=== PATIENT | female | born 2000 | race Caucasian/White ===

== ENCOUNTER 2021-08-25 09:23 | Emergency (ER) | payer BC ==
[2021-08-25 09:57] VITALS: RESP 18
[2021-08-25 10:31] LABS: Appearance,Urine Cloudy (Clear); Bacteria,Urine Rare /hpf; Bilirubin,Urine Negative (Negative); Blood,Urine Trace (Negative); Color,Urine Yellow; Glucose,Urine (UA) Negative (Negative); Ketones,Urine Negative (Negative); Leukocyte Esterase,Urine Moderate (Negative); Mucus,Urine Many /hpf; Nitrite,Urine Negative (Negative); PH, Urine 5.5 (5.0-8.0); Protein,Urine 1+ (Negative); RBC,Urine 5 /hpf (0-5); Specific Gravity,Urine 1.034 (1.001-1.035); Squamous Epithelial Cell,Urine 8 /hpf (0-4); Urobilinogen,Urine <2.0 mg/dL (<2.0); WBC,Urine 8 /hpf (0-5)
[2021-08-25] MEDS ORDERED: SODIUM CHLORIDE 0.9% 1,000 ML IV STA (11:46)
[2021-08-25] MEDS ORDERED: diphenhydrAMINE 50 MG/ML 1 ML VIAL IVP STA (11:46)
[2021-08-25] MEDS ORDERED: METOCLOPRAMIDE 5 MG/ML 2 ML VIAL IVP STA (11:46)
[2021-08-25] MEDS ORDERED: KETOROLAC 15 MG/ML 1 ML VIAL IVP STA (11:47)
[2021-08-25] MEDS ORDERED: ACETAMINOPHEN TAB 500 MG TAB PO STA (11:49)
--- NOTE | 2021-08-25 12:03 | ED ---
General Adult HPI - General Chief complaint: Nausea/Vomiting/Diarrhea Stated complaint: N/V/D, bodyaches Time Seen by Provider: 08/25/21 11:15 Source: patient Mode of arrival: ambulatory Limitations: no limitations - History of Present Illness Initial comments: This 20-year-old male presents emergency Department with nausea, vomiting, diarrhea 2 days. Patient states on Tuesday morning she woke up having diarrhea and began vomiting a couple of hours later. Patient states she vomited on and off over the last 2 days. Patient states since yesterday she has also been experiencing a dull nagging headache along with body aches. Patient states her diarrhea has significantly improved, however she has had one episode today. Patient states she also has a little bit of right lower back pain that she noticed after retching/vomiting yesterday. Patient states it is painful to touch/twist and bend. Patient states she has been able to keep a little bit of fluid down, however whenever she tries to have food she vomits it back up. Patient states she does have some abdominal pain that is more in her left lower quadrant. Patient states she did try taking Zofran which did not have any relief. Patient states she has been experiencing episodes of chills and sweats over the last couple of days. Patient denies any chest pain, shortness of breath, dizziness, cough, change in bladder/urination, change in vision, dizziness, hemoptysis, hematochezia. - Related Data Home Medications Medication Instructions Recorded Confirmed FLUoxetine HCL [Sarafem] 10 mg PO DAILY 08/25/21 08/25/21 Ondansetron Odt [Zofran Odt] 4 mg PO DAILY PRN 08/25/21 08/25/21 Allergies Allergy/AdvReac Type Severity Reaction Status Date / Time Latex, Natural Rubber AdvReac Rash/Hives Verified 08/25/21 12:01 Review of Systems ROS Statement: Those systems with pertinent positive or pertinent negative responses have been documented in the HPI. ROS Other: All systems not noted in ROS Statement are negative. Past Medical History Past Medical History: No Reported History History of Any Multi-Drug Resistant Organisms: None Reported Past Surgical History: Adenoidectomy, Tonsillectomy Past Psychological History: No Psychological Hx Reported Smoking Status: Never smoker Past Alcohol Use History: Occasional Past Drug Use History: None Reported General Exam Limitations: no limitations General appearance: alert, in no apparent distress Head exam: Present: atraumatic, normocephalic Eye exam: Present: normal appearance, PERRL, EOMI ENT exam: Present: mucous membranes moist Neck exam: Present: full ROM. Absent: tenderness, meningismus, lymphadenopathy Respiratory exam: Present: normal lung sounds bilaterally. Absent: respiratory distress, wheezes, rales, rhonchi, stridor Cardiovascular Exam: Present: regular rate, normal rhythm, normal heart sounds. Absent: systolic murmur, diastolic murmur, rubs, gallop, clicks GI/Abdominal exam: Present: soft, tenderness (Diffuse abdominal tenderness to palpation, worse in the left lower quadrant. I did inform patient that I wanted to do a computed tomography scan of her abdomen, however patient does not want contrast and did refuse scan.), normal bowel sounds. Absent: distended, guarding, rebound, rigid Extremities exam: Present: normal inspection, full ROM, normal capillary refill. Absent: tenderness, pedal edema, joint swelling, calf tenderness Back exam: Present: normal inspection, full ROM, paraspinal tenderness (Mild right paraspinal tenderness to lumbar spine to palpation). Absent: CVA tenderness (R), CVA tenderness (L), vertebral tenderness Neurological exam: Present: alert, oriented X3, CN II-XII intact Psychiatric exam: Present: normal affect, normal mood Skin exam: Present: warm, dry, intact, normal color. Absent: rash Course Vital Signs 08/25/21 08/25/21 09:54 12:28 Temperature 100.9 F H 99.6 F Pulse Rate 118 H 104 H Respiratory 18 18 Rate Blood Pressure 130/80 103/63 O2 Sat by Pulse 100 98 Oximetry - Reevaluation(s) Reevaluation #1: 08/25/21 13:01 And reevaluation, patient states she is ready to go home. Patient states she is not feeling is nauseous as before. Patient was able to keep down by mouth water. Patient states her headache has resolved and is only now at 2/10. I didn't perform patient wanted to wait for her white blood cell count to come back before discharging her. I did state that I wanted to do a CT scan of her abdomen due to her left lower quadrant tenderness, however patient did refuse and stated she would return if anything worsens or comes back. Patient states she does not have very much pain in her abdomen at this time and states it is just diffuse. 08/25/21 13:38 Waiting for labs to result, patient sitting up in bed requesting to be discharged. Patient has been able to keep down fluids without vomiting, however she did refuse crackers and stated she wants to go home and sleep. Endocrine crackers patient, however she stated she would not use them. Patient services taking computed tomography scan. Patient currently denies any headache or nausea and states her stomach just feels "upset." I informed patient will discharge her after receiving her labs. 08/25/21 13:50 Labs with no acute abnormalities, patient instructed to return to the emergency department if any of her symptoms return or worsen. Medical Decision Making - Medical Decision Making This 20-year-old female presents emergency Department with nausea, vomiting, diarrhea and body aches x2 days. Labs unremarkable, urine with bacteria and epithelial cells. HCG not detected. Coronavirus not detected. After getting Reglan, Benadryl, fluids, Toradol, Tylenol, patient states she feels much better and is requesting to go home. Patient is no longer nauseous and no longer has a headache. Patient states her abdominal pain is still there and generalized, however it is improved greatly. Patient states she does have Zofran at home and does not need anymore. Due to left lower quadrant tenderness, I did offer comp uted tomography scan of abdomen and pelvis, however patient did refuse and stated she would come back to the emergency department if any of her symptoms return or worsen. Strict return precautions were discussed with patient. Patient to follow-up with primary care provider next 24-48 hours. Patient verbally agreed to plan. Patient sent home in stable condition. Case discussed with my attending, Dr. Flores. - Lab Data Result diagrams: 08/25/21 13:31 08/25/21 11:57 Lab Results 08/25/21 08/25/21 08/25/21 Range/Units 10:01 10:12 10:12 WBC (3.8-10.6) k/uL RBC (3.80-5.40) m/uL Hgb (11.4-16.0) gm/dL Hct (34.0-46.0) % MCV (80.0-100.0) fL MCH (25.0-35.0) pg MCHC (31.0-37.0) g/dL RDW (11.5-15.5) % Plt Count (150-450) k/uL MPV Neutrophils % % Lymphocytes % % Monocytes % % Eosinophils % % Basophils % % Neutrophils # (1.3-7.7) k/uL Lymphocytes # (1.0-4.8) k/uL Monocytes # (0-1.0) k/uL Eosinophils # (0-0.7) k/uL Basophils # (0-0.2) k/uL Sodium (137-145) mmol/L Potassium (3.5-5.1) mmol/L Chloride (98-107) mmol/L Carbon Dioxide (22-30) mmol/L Anion Gap mmol/L BUN (7-17) mg/dL Creatinine (0.52-1.04) mg/dL Est GFR (CKD-EPI)AfAm (>60 ml/min/1.73 sqM) Est GFR (CKD-EPI)NonAf (>60 ml/min/1.73 sqM) Glucose (74-99) mg/dL Plasma Lactic Acid Shyam (0.7-2.0) mmol/L Calcium (8.4-10.2) mg/dL Total Bilirubin (0.2-1.3) mg/dL AST (14-36) U/L ALT (4-34) U/L Alkaline Phosphatase (38-126) U/L Total Protein (6.3-8.2) g/dL Albumin (3.5-5.0) g/dL Lipase (23-300) U/L Urine Color Yellow Urine Appearance Cloudy H (Clear) Urine pH 5.5 (5.0-8.0) Ur Specific Herrick 1.034 (1.001-1.035) Urine Protein 1+ H (Negative) Urine Glucose (UA) Negative (Negative) Urine Ketones Negative (Negative) Urine Blood Trace H (Negative) Urine Nitrite Negative (Negative) Urine Bilirubin Negative (Negative) Urine Urobilinogen <2.0 (<2.0) mg/dL Ur Leukocyte Esterase Moderate H (Negative) Urine RBC 5 (0-5) /hpf Urine WBC 8 H (0-5) /hpf Ur Squamous Epith Cells 8 H (0-4) /hpf Urine Bacteria Rare H (None) /hpf Urine Mucus Many H (None) /hpf Urine HCG, Qual Not Detected (Not Detectd) Coronavirus (PCR) Not Detected (Not Detectd) 08/25/21 08/25/21 08/25/21 Range/Units 11:57 11:57 13:31 WBC 9.2 (3.8-10.6) k/uL RBC 4.48 (3.80-5.40) m/uL Hgb 13.8 (11.4-16.0) gm/dL Hct 41.3 (34.0-46.0) % MCV 92.2 (80.0-100.0) fL MCH 30.7 (25.0-35.0) pg MCHC 33.4 (31.0-37.0) g/dL RDW 12.4 (11.5-15.5) % Plt Count 229 (150-450) k/uL MPV 8.7 Neutrophils % 83 % Lymphocytes % 10 % Monocytes % 5 % Eosinophils % 1 % Basophils % 0 % Neutrophils # 7.6 (1.3-7.7) k/uL Lymphocytes # 0.9 L (1.0-4.8) k/uL Monocytes # 0.4 (0-1.0) k/uL Eosinophils # 0.1 (0-0.7) k/uL Basophils # 0.0 (0-0.2) k/uL Sodium 135 L (137-145) mmol/L Potassium 3.7 (3.5-5.1) mmol/L Chloride 103 (98-107) mmol/L Carbon Dioxide 23 (22-30) mmol/L Anion Gap 9 mmol/L BUN 12 (7-17) mg/dL Creatinine 0.81 (0.52-1.04) mg/dL Est GFR (CKD-EPI)AfAm >90 (>60 ml/min/1.73 sqM) Est GFR (CKD-EPI)NonAf >90 (>60 ml/min/1.73 sqM) Glucose 91 (74-99) mg/dL Plasma Lactic Acid Shyam 0.9 (0.7-2.0) mmol/L Calcium 8.9 (8.4-10.2) mg/dL Total Bilirubin 0.8 (0.2-1.3) mg/dL AST 26 (14-36) U/L ALT 16 (4-34) U/L Alkaline Phosphatase 61 (38-126) U/L Total Protein 7.3 (6.3-8.2) g/dL Albumin 4.4 (3.5-5.0) g/dL Lipase 31 (23-300) U/L Urine Color Urine Appearance (Clear) Urine pH (5.0-8.0) Ur Specific Herrick (1.001-1.035) Urine Protein (Negative) Urine Glucose (UA) (Negative) Urine Ketones (Negative) Urine Blood (Negative) Urine Nitrite (Negative) Urine Bilirubin (Negative) Urine Urobilinogen (<2.0) mg/dL Ur Leukocyte Esterase (Negative) Urine RBC (0-5) /hpf Urine WBC (0-5) /hpf Ur Squamous Epith Cells (0-4) /hpf Urine Bacteria (None) /hpf Urine Mucus (None) /hpf Urine HCG, Qual (Not Detectd) Coronavirus (PCR) (Not Detectd) Disposition Clinical Impression: Nausea and vomiting, Diarrhea Disposition: HOME SELF-CARE Condition: Stable Instructions (If sedation given, give patient instructions): Acute Nausea and Vomiting (ED), Acute Diarrhea (ED) Additional Instructions: Please follow-up with her primary care provider next 24-48 hours. Please return to the emergency department with new, worsening, or concerning symptoms. Take Zofran as directed. Take Tylenol or Motrin for fever and symptomatically as directed. Is patient prescribed a controlled substance at d/c from ED?: No Referrals: Nonstaff,Physician [Primary Care Provider] - 1-2 days Time of Disposition: 13:50
[2021-08-25 12:43] LABS: ALT 16 U/L (4-34); AST 26 U/L (14-36); African American GFR (CKD) >90 (>60 ml/min/1.73 sqM); Albumin 4.4 g/dL (3.5-5.0); Alkaline Phosphatase 61 U/L (38-126); Anion Gap 9 mmol/L; Blood Urea Nitrogen 12 mg/dL (7-17); Calcium 8.9 mg/dL (8.4-10.2); Carbon Dioxide 23 mmol/L (22-30); Chloride 103 mmol/L (98-107); Glucose 91 mg/dL (74-99); Lipase 31 U/L (23-300); Non-African American GFR(CKD) >90 (>60 ml/min/1.73 sqM); Potassium 3.7 mmol/L (3.5-5.1); Sodium 135 mmol/L (137-145); Total Bilirubin 0.8 mg/dL (0.2-1.3); Total Protein 7.3 g/dL (6.3-8.2)
[2021-08-25 13:43] LABS: Basophils % (A) 0 %; Eosinophils # (A) 0.1 k/uL (0-0.7); Eosinophils % (A) 1 %; HCT 41.3 % (34.0-46.0); HGB 13.8 gm/dL (11.4-16.0); Lymphocytes # (A) 0.9 k/uL (1.0-4.8); Lymphocytes % (A) 10 %; MCH 30.7 pg (25.0-35.0); MCHC 33.4 g/dL (31.0-37.0); MCV 92.2 fL (80.0-100.0); Mean Platelet Volume 8.7; Monocytes # (A) 0.4 k/uL (0-1.0); Monocytes % (A) 5 %; Neutrophils # (A) 7.6 k/uL (1.3-7.7); Neutrophils % (A) 83 %; Platelet Count 229 k/uL (150-450); RBC 4.48 m/uL (3.80-5.40); RDW 12.4 % (11.5-15.5); WBC 9.2 k/uL (3.8-10.6)
[2021-08-25 14:27] VITALS: BP 107/55; PULSE 78; TEMP 98.3
== END 2021-08-25 14:27 | disposition home or self-care (01) ==
LOC: EC 09:23
DX: R11.2 Nausea with vomiting, unspecified (principal); R19.7 Diarrhea, unspecified; Z20.822 Contact with and (suspected) exposure to COVID-19; Z91.040 Latex allergy status
CPT/HCPCS: 36415; 80053; 83605; 83690; 85025; 81001; 81025; 87635; 99284; 96374; 96375; 96361; J1200; J2765; J1885

== ENCOUNTER 2022-07-11 17:05 | Emergency (ER) | payer BC ==
[2022-07-11 17:16] VITALS: RESP 20
--- NOTE | 2022-07-11 17:30 | ED ---
Lower Extremity Injury HPI - General Chief Complaint: Extremity Injury, Lower Stated Complaint: fall, ankle pain Time Seen by Provider: 07/11/22 17:17 Source: patient Mode of arrival: ambulatory Limitations: no limitations - History of Present Illness Initial Comments: This patient is 21-year-old woman who presents to have evaluation of left ankle. She states that she was going down some stairs, lost her footing and fell down. She states that her foot and ankle were underneath and she slid down a few stairs. The patient indicates pain at the lateral aspect of the ankle and also along the lateral aspect of the forefoot. She states she was able to put a little bit of weight on the fluid but it does increase the pain. She states she has had previous fracture in the left ankle that did require casting but no surgery. Other than that, patient states she has some abrasions to her knee and her buttocks. She believes that her tetanus shot is up-to-date. She denies any other injuries. She declines to have analgesic MD Complaint: ankle injury, foot injury Onset/Timin -: hour(s) Injury: Ankle: Left, Foot: Left Type of Injury: inversion Place: home Severity: moderate Improves With: nothing Worsens With: weight bearing Context: fall Associated Symptoms: swelling, able to partially bear weight - Related Data Home Medications Medication Instructions Recorded Confirmed FLUoxetine HCL [Sarafem] 10 mg PO DAILY 08/25/21 08/25/21 Ondansetron Odt [Zofran Odt] 4 mg PO DAILY PRN 08/25/21 08/25/21 Allergies Allergy/AdvReac Type Severity Reaction Status Date / Time Latex, Natural Rubber AdvReac Rash/Hives Verified 07/11/22 17:16 Review of Systems ROS Statement: Those systems with pertinent positive or pertinent negative responses have been documented in the HPI. ROS Other: All systems not noted in ROS Statement are negative. Respiratory: Denies: cough, dyspnea Cardiovascular: Denies: chest pain, palpitations Gastrointestinal: Denies: abdominal pain, vomiting, diarrhea Musculoskeletal: Reports: as per HPI, joint swelling, arthralgia. Denies: back pain Skin: Denies: rash Neurological: Denies: headache, weakness, numbness Past Medical History Past Medical History: No Reported History History of Any Multi-Drug Resistant Organisms: None Reported Past Surgical History: Adenoidectomy, Tonsillectomy Past Psychological History: No Psychological Hx Reported Smoking Status: Never smoker Past Alcohol Use History: Occasional Past Drug Use History: None Reported General Exam Limitations: no limitations General appearance: alert, in no apparent distress Head exam: Present: atraumatic, normocephalic Eye exam: Present: normal appearance GI/Abdominal exam: Present: soft. Absent: tenderness Extremities exam: Present: full ROM, tenderness, normal capillary refill. Absent: pedal edema, calf tenderness Left Upper Leg exam: Present: full ROM. Absent: tenderness, swelling Knee exam: Present: full ROM. Absent: tenderness, swelling, abrasion Lower Leg exam: Present: full ROM. Absent: tenderness, swelling, abrasion Ankle exam: Present: tenderness, swelling. Absent: abrasion, laceration Foot/Toe exam: Present: tenderness, swelling. Absent: abrasion, laceration, ecchymosis, deformity, crepitus, dislocation, erythema, amputation, calcaneal tenderness, tenderness at base of 5th metatarsal, nail avulsion, subungual hematoma Neurovascular tendon exam: Present: no vascular compromise. Absent: pulse deficit, abnormal cap refill, motor deficit, sensory deficit, tendon deficit Back exam: Absent: CVA tenderness (R), CVA tenderness (L), vertebral tenderness Neurological exam: Present: alert. Absent: motor sensory deficit Skin exam: Present: warm, dry, intact, normal color. Absent: rash Course Vital Signs 07/11/22 07/11/22 17:13 18:51 Temperature 98.1 F 98.2 F Pulse Rate 110 H 102 H Respiratory 20 20 Rate Blood Pressure 142/85 136/81 O2 Sat by Pulse 97 96 Oximetry Medical Decision Making - Medical Decision Making Patient is 21-year-old woman with low mechanism fall and pain to ankle/foot. She is sent for x-rays of the ankle which interpreted by myself are negative for fracture or dislocation of the ankle. She is sent for x-rays of foot which are interpreted by myself as showing nondisplaced fourth metatarsal fracture. Results are discussed with patient. She is fitted with postoperative shoe. Discussed appropriate further care and follow-up with orthopedics and return parameters for here should she require. Patient to be nonweightbearing discussed crutches use. Discussed appropriate medications with including the Tylenol is safe to take. Was pt. sent in by a medical professional or institution? @ -[No Did you speak to anyone other than the patient for history? @ -[No Did you review nursing and triage notes? @ -[agree Were old charts reviewed? @ -[None Differential Diagnosis? @ -[Differential diagnosis for extremity injury includes acute fracture, dislocation, sprain, contusion, acute vascular injury, neurologic injury amongst other entities EKG interpreted by me (3pts min.)? @ -[none] X-rays interpreted by me (1pt min.)? @ -[See chart CT interpreted by me (1pt min.)? @ -[none] U/S interpreted by me (1pt. min.)? @ -[none] What testing was considered but not performed? (CT, X-rays, U/S, labs)? Why? @ [None What meds were considered but not given? Why? @ -[none] Did you discuss the management of the patient with other professionals? @ -No] Did you reconcile home meds? @ -[none] Was smoking cessation discussed for >3mins.? @ -[none] Was critical care preformed (if so, how long)? @ -[none] Were there social determinants of health that impacted care today? How? (Homelessness, low income, unemployed, alcoholism, drug addiction, transportation, low edu. Level, literacy, decrease access to med. care, long term, rehab)? @ -No Was there de-escalation of care discussed even if they declined? (Discuss DNR or withdrawal of care, Hospice)? @ -No What co-morbidities impacted this encounter? (DM, HTN, Smoking, COPD, CAD, Cancer, CVA, Hep., AIDS, mental health diagnosis, sleep apnea, morbid obesity)? @ -[Patient is affecting medication choice Was patient admitted / discharged? @ -[Discharged Undiagnosed new problem with uncertain prognosis? @ -[none] Drug Therapy requiring intensive monitoring for toxicity (Heparin, Nitro, Insulin, Cardizem)? @ -[none] Were any procedures done? @ -[none] Diagnosis/symptom? @ -[Acute closed fourth metatarsal fracture, uncomplicated, Initial visit Acute, or Chronic, or Acute on Chronic?, @ -[default] Uncomplicated (without systemic symptoms) or Complicated (systemic symptoms)? @ -[default] Side effects of treatment? @ -[none] Exacerbation, Progression, or Severe Exacerbation] @ -[no] Poses a threat to life or bodily function? @ -[no] Disposition Clinical Impression: Metatarsal stress fracture of left foot Disposition: HOME SELF-CARE Condition: Good Instructions (If sedation given, give patient instructions): Foot Fracture in Adults (ED) Is patient prescribed a controlled substance at d/c from ED?: No Referrals: Elliott Gunter MD [Primary Care Provider] - 1-2 days Sonu Thomas DO [Doctor of Osteopathic Medicine] - 1-2 days
--- NOTE | 2022-07-11 17:59 | XR ---
EXAMINATION TYPE: XR foot complete LT DATE OF EXAM: 07/11/2022 COMPARISON: NONE HISTORY: Pain TECHNIQUE: 3 views FINDINGS: There is nondisplaced fracture of the head of the fourth metatarsal. There is slight impact ion. The toes are intact. IMPRESSION: Acute nondisplaced distal fourth metatarsal fracture.
--- NOTE | 2022-07-11 18:00 | XR ---
EXAMINATION TYPE: XR ankle complete LT DATE OF EXAM: 07/11/2022 COMPARISON: NONE HISTORY: Pain TECHNIQUE: 3 views FINDINGS: Ankle mortise is anatomic. I see no fracture nor dislocation. Joint spaces are normal. Hind foot is intact IMPRESSION: Negative left ankle exam.
[2022-07-11 18:52] VITALS: BP 136/81; PULSE 102; TEMP 98.2
== END 2022-07-11 19:04 | disposition home or self-care (01) ==
LOC: EC 17:05
DX: M84.375A Stress fracture, left foot, initial encounter for fracture (principal); Z91.040 Latex allergy status; W10.9XXA Fall (on) (from) unspecified stairs and steps, initial encounter
CPT/HCPCS: 99283

== ENCOUNTER 2022-10-15 10:17 | Outpatient (CLI) | payer BC ==
--- NOTE | 2022-10-15 13:16 | US ---
EXAMINATION TYPE: US OB BPP wo non-stress DATE OF EXAM: 10/15/2022 COMPARISON: NONE CLINICAL INDICATION: Female, 22 years old with history of decreased movement; can't feel baby m ove today TECHNIQUE: Transabdominal (TA). Scoring by the rn camp during real-time assessment. FINDINGS: BPP PARAMETERS: PRESENTATION: Vertex LIE: Longitudinal?? HEART RATE: 134 bpm RHYTHM: Normal ROSALES: 15.0 DIAPHRAGM IMAGED: yes BPP SCORIN. Breathin (1 episode of breathing of 30 second duration in 30 minutes of scanning time) 2. Movement: 2 (at least 3 discrete body movements in 30 minutes) 3. Tone: 2 (1 episode of active flexion/extension of limb) 4. ROSALES: 2 (ROSALES index > 5cm) IMPRESSION: TOTAL SCORE: 8 / 8
[2022-10-15 13:39] VITALS: BP 116/67; PULSE 95; RESP 17; TEMP 98.2
--- NOTE | 2022-11-09 14:02 | P.MSEPDOC ---
Presenting Problems - Arrival Data Date of Arrival on Unit: 10/15/22 Time of Arrival on Unit: 10:17 Mode of Transport: Ambulatory - Complaint OB-Reason for Admission/Chief Complaint: Rule Out PROM, Decreased Movement Comment: pt states she has had decreased movement, vaginal pain and possbile 2 gushes of clear fluid in last two weeks Medical History - Information : 1 Para: 0 Term: 0 : 0 Abortions: Spontaneous or Elective: 0 Number of Living Children: 0 - Gestational Age Gestational Age by LIZZ (wks/days): 33 Weeks and 2 Days Review of Systems - Review of Systems Constitutional: No problems Breast: No problems ENT: No problems Cardiovascular: No problems Respiratory: No problems Gastrointestinal: No problems Genitourinary: No problems Musculoskeletal: No problems Neurological: No problems Skin: No problems Vital Signs - Temperature Temperature: 98.2 F Temperature Source: Oral - Pulse Right Brachial Pulse Rate: 95 Pulse Assessment Method: Automatic Cuff - Respirations Respiratory Rate: 17 Oxygen Delivery Method: Room Air O2 Sat by Pulse Oximetry: 97 - Blood Pressure Right Arm Blood Pressure: 116/67 Blood Pressure Mean: 83 Blood Pressure Source: Automatic Cuff Medical Screen Scoring - Cervical Exam Dilation (cm): 0 Membranes: Intact - Assessment - Baby A Baseline FHR: 135 Heart Rate - NICHD Category: Category I (Normal) NST: Reactive Physician Notification - Physician Notified Physician Notified Date: 10/15/22 Physician Notified Time: 12:21 Physician: Bindu Kenny New Order Received: Yes (dc home after bpp) Maternal Triage Index - Urgent/Priority 2 Urgent Priority 2: Yes Provider Notified: Bindu Kenny Provider Notified Time: 12:21 Criteria Met for Priority 2: BPP ordered with result of 02/01 Disposition - Disposition OB Disposition: Discharge to home, Written follow up instructions reviewed Discharge Date: 10/15/22 Discharge Time: 13:00 I agree with the RN Medical Screening Exam: Yes Physician's MSE Comment: I have neither seen nor examined the patient Case reviewed; plan agreed upon as documented in EMR&OBIX.: Yes Diagnosis: RELATED CONDITIONS, UNSPECIFIED, THIRD TRIMESTER
== END 2022-10-15 13:00 | disposition home or self-care (01) ==
LOC: FBPOP 10:17
PROVIDERS: ATTEND Obstetrics & Gynecology
DX: O36.8131 Decreased fetal movements, third trimester, fetus 1 (principal); Z3A.33 33 weeks gestation of pregnancy; Z91.040 Latex allergy status
CPT/HCPCS: 59025; 76819; 84112; 99213

== ENCOUNTER 2022-11-16 16:31 | Outpatient (CLI) | payer BC ==
[2022-11-16 17:18] VITALS: BP 136/71; PULSE 100; RESP 16; TEMP 98.7
--- NOTE | 2022-12-16 19:11 | P.MSEPDOC ---
Presenting Problems - Arrival Data Date of Arrival on Unit: 11/16/22 Time of Arrival on Unit: 17:17 Mode of Transport: Ambulatory - Complaint OB-Reason for Admission/Chief Complaint: Possible Onset of Labor Medical History - Information : 1 Para: 0 Term: 0 : 0 Abortions: Spontaneous or Elective: 0 Number of Living Children: 0 - Gestational Age Gestational Age by LIZZ (wks/days): 37 Weeks and 6 Days Review of Systems - Review of Systems Constitutional: No problems Breast: No problems ENT: No problems Cardiovascular: No problems Respiratory: No problems Gastrointestinal: No problems Genitourinary: No problems Musculoskeletal: No problems Neurological: No problems Skin: No problems Vital Signs - Temperature Temperature: 98.7 F Temperature Source: Oral - Pulse Standing Pulse Rate: 100 Pulse Assessment Method: Palpation - Respirations Respiratory Rate: 16 Oxygen Delivery Method: Room Air - Blood Pressure Sitting Blood Pressure: 136/71 Blood Pressure Mean: 92 Blood Pressure Source: Automatic Cuff Medical Screen Scoring - Cervical Exam Dilation (cm): 2 Effacement (%): 70 Station: -1 Membranes: Intact - Uterine Contractions Frequency From (mins): 2 Frequency To (mins): 10 Intensity: Mild - Assessment - Baby A Heart Rate - NICHD Category: Category I (Normal) Physician Notification - Physician Notified Physician Notified Date: 11/16/22 Physician Notified Time: 17:14 Physician: dr medrano New Order Received: Yes - Notification Comment Comment: pt to be discharged home after one hour if no cervical change Maternal Triage Index - Non-Urgent/Priority 4 Non-Urgent Priority 4: Yes Criteria Met for Priority 4: dr medrano here in department at 1715 report given orders to discharge home if no cervical change in one hour Disposition - Disposition OB Disposition: Observe Discharge Date: 11/16/22 Discharge Time: 18:49 I agree with the RN Medical Screening Exam: Yes Case reviewed; plan agreed upon as documented in EMR&OBIX.: Yes Diagnosis: FALSE LABOR AT OR AFTER 37 COMPLETED WEEKS OF GESTATION
== END 2022-11-16 18:20 | disposition home or self-care (01) ==
LOC: FBPOP 16:31
PROVIDERS: ATTEND Obstetrics & Gynecology Obstetrics
DX: O47.03 False labor before 37 completed weeks of gestation, third trimester (principal); Z3A.37 37 weeks gestation of pregnancy; Z91.040 Latex allergy status
CPT/HCPCS: 59025; 99213

== ENCOUNTER 2022-11-16 21:34 | Inpatient (IN) | payer BC ==
[2022-11-16] MEDS: LACTATED RINGERS 1,000 ML IV SCH (23:38)
[2022-11-16 23:51] LABS: Appearance,Urine Clear (Clear); Bilirubin,Urine Negative (Negative); Blood,Urine Small (Negative); Color,Urine Yellow; Glucose,Urine (UA) Negative (Negative); Ketones,Urine 2+ (Negative); Leukocyte Esterase,Urine Negative (Negative); Mucus,Urine Rare /hpf; Nitrite,Urine Negative (Negative); PH, Urine 6.5 (5.0-8.0); Protein,Urine Trace (Negative); RBC,Urine 2 /hpf (0-5); Specific Gravity,Urine 1.015 (1.001-1.035); Squamous Epithelial Cell,Urine <1 /hpf (0-4); Urobilinogen,Urine <2.0 mg/dL (<2.0); WBC,Urine 1 /hpf (0-5)
[2022-11-17] MEDS: LACTATED RINGERS 1,000 ML IV SCH ×6 (00:26→10:28)
[2022-11-17] MEDS ORDERED: BUTORPHANOL 2 MG/ML 1 ML VIAL IV PRN (02:02)
[2022-11-17] MEDS ORDERED: MORPHINE SULFATE 10 MG/ML 1ML VIAL IM ONE (02:45)
[2022-11-17 02:50] LABS: Basophils % (A) 0 %; Eosinophils # (A) 0.2 k/uL (0-0.7); Eosinophils % (A) 1 %; HCT 39.7 % (34.0-46.0); HGB 13.2 gm/dL (11.4-16.0); Lymphocytes % (A) 15 %; MCH 30.3 pg (25.0-35.0); MCHC 33.3 g/dL (31.0-37.0); Mean Platelet Volume 11.8; Monocytes # (A) 0.6 k/uL (0-1.0); Monocytes % (A) 4 %; Neutrophils # (A) 10.6 k/uL (1.3-7.7); Neutrophils % (A) 78 %; Platelet Count 203 k/uL (150-450); RBC 4.36 m/uL (3.80-5.40); WBC 13.5 k/uL (3.8-10.6)
[2022-11-17] MEDS ORDERED: fentaNYL (PF) 50 MCG/ML 5 ML AMP ONE (09:06)
[2022-11-17] MEDS ORDERED: ROPIVACAINE 5 MG/ML 20 ML AMPULE ONE (09:06)
[2022-11-17] MEDS ORDERED: SODIUM CHLORIDE 0.9% 100 ML BAG ONE (09:06)
[2022-11-17] MEDS ORDERED: CARBOPROST TROMETHAMINE 250 MCG/ML 1 ML AMP IM PRN (10:13)
[2022-11-17] MEDS ORDERED: METHYLERGONOVINE 0.2 MG/ML 1 ML AMP IM PRN (10:13)
[2022-11-17] MEDS ORDERED: miSOPROStoL 200 MCG TAB PO PRN (10:13)
[2022-11-17] MEDS ORDERED: LIDOCAINE 0.5% (PF) 5 MG/ML (50 ML SDV) SQ PRN (10:13)
[2022-11-17] MEDS ORDERED: OXYTOCIN 10 UNIT/ML 1 ML VIAL IM PRN (10:13)
[2022-11-17] MEDS ORDERED: TRANEXAMIC ACID IN NACL,ISO-OS 1,000 MG in EMPTY BAG 1 BAG IV PRN (10:13)
[2022-11-17] MEDS ORDERED: TERBUTALINE 1 MG/ML VIAL SQ PRN (10:13)
[2022-11-17] MEDS ORDERED: OXYTOCIN 30 UNITS/500 ML NS 30 UNIT in SALINE 1 500ML.BAG IV SCH ×2 (10:15→17:15)
[2022-11-17] MEDS ORDERED: ACETAMINOPHEN TAB 325 MG TAB PO PRN (17:10)
[2022-11-17] MEDS ORDERED: HYDROCORTISONE 2.5% RECTAL CREAM 30 GM TUBE RECTAL PRN (17:10)
[2022-11-17] MEDS ORDERED: ZOLPIDEM 5 MG TAB PO PRN (17:10)
[2022-11-17] MEDS ORDERED: diphenhydrAMINE 25 MG CAP PO PRN (17:10)
[2022-11-17] MEDS ORDERED: SIMETHICONE 80 MG CHEWABLE PO PRN (17:10)
[2022-11-17] MEDS ORDERED: BENZOCAINE/MENTHOL SPRAY 1 GM/SPRAY AEROSOL TOPICAL PRN (17:10)
[2022-11-17] MEDS ORDERED: diphenhydrAMINE 50 MG/ML 1 ML VIAL IVP PRN ×2 (17:10)
[2022-11-17] MEDS ORDERED: LANOLIN CREAM 5 GM TUBE TOPICAL PRN (17:10)
[2022-11-17] MEDS ORDERED: diphenhydrAMINE 50 MG CAP PO PRN (17:10)
--- NOTE | 2022-11-17 17:14 | P.PROBDLV ---
Vaginal Delivery Note - . Vaginal Delivery Note: This is a 22-year-old 1 para 0 at 38-0/7 weeks that presents to labor and delivery with complaints of regular contractions. Patient was observed overnight as she was noted to be [place] and very uncomfortable with no cervical change. This warning on examination patient was noted to be 4 cm very uncomfortable and requesting pain medication. Patient underwent amniotomy clear fluid was obtained. Patient quickly requested epidural which was placed without difficulty. Patient had increasing pain after epidural was placed therefore nitrous was begun in addition. Patient progressed through labor eventually was noted to be completely dilated. Patient was placed in the modified lithotomy position and with excellent maternal effort brought the infant down to presentation with additional pushes the anterior/posterior shoulder and body was delivered. A loose nuchal cord was delivered through. The umbilical cord was doubly clamped and cut and the infant was handed off to awaiting RN. Spontaneous cry was appreciated. Placenta was delivered spontaneously intact with three-vessel cord being noted. On inspection the patient's vaginal vault a first-degree vaginal laceration was appreciated. This laceration was injected with lidocaine and repaired in usual fashion with 3-0 Rapide. The bladder was drained with a latex free catheter for partially 200 mL of clear yellow urine. Estimated blood loss 200 mL Patient tolerated delivery well, was noted to have some grunting after delivery therefore was taken to special care nursery for observation. All counts were noted correct 2 at the end of the delivery.
--- NOTE | 2022-11-17 17:15 | P.HPOB ---
History of Present Illness H&P Date: 11/17/22 Chief Complaint: IUP at 38 and 0/7 weeks, contractions [age]-year-old at 38-0/7 weeks that presents to labor and delivery with complaints of regular painful contractions. Patient was seen multiple times in triage throughout the day with complaints of contractions. Patient made minimal cervical change. This morning she is significantly more uncomfortable and tearful with contractions. On exam she did make noted change from 2 cm to 4 cm. Patient does desire epidural. Patient has been receiving routine care with myself which has been essentially uncomplicated. On bloodwork this patient is a blood type of A+, rubella status immune, B surface engine negative, HIV negative, RPR is nonreactive, group beta strep cultures negative. Review of Systems Constitutional: Reports fatigue, Denies chills, Denies fever Ears, nose, mouth and throat: Denies headache Cardiovascular: Reports leg edema Respiratory: Denies dyspnea Gastrointestinal: Denies nausea, Denies vomiting Genitourinary: Reports Past Medical History Past Medical History: No Reported History History of Any Multi-Drug Resistant Organisms: None Reported Past Surgical History: Adenoidectomy, Tonsillectomy Past Anesthesia/Blood Transfusion Reactions: No Reported Reaction Past Psychological History: No Psychological Hx Reported Smoking Status: Never smoker Past Alcohol Use History: Occasional Past Drug Use History: None Reported - Past Family History Mother Family Medical History: No Reported History Medications and Allergies Home Medications Medication Instructions Recorded Confirmed Type Aspirin 81 mg PO DAILY 10/15/22 11/16/22 History FLUoxetine HCL [PROzac] 1 tab PO DAILY 10/15/22 11/16/22 History Vit No.179/Iron/Folic 1 tablet PO DAILY 10/15/22 11/16/22 History [ Tablet] Allergies Allergy/AdvReac Type Severity Reaction Status Date / Time Latex, Natural Rubber AdvReac Rash/Hives Verified 10/15/22 10:57 Exam Osteopathic Statement: *. No significant issues noted on an osteopathic structural exam other than those noted in the History and Physical/Consult. Vital Signs Temp Pulse Resp BP Pulse Ox 11/17/22 01:53 98.2 F 101 H 16 136/80 11/16/22 21:46 98.1 F 101 H 16 119/68 98 Intake and Output 11/16/22 11/17/22 11/17/22 22:59 06:59 14:59 Other: # Voids 1 Weight 113.398 kg 113.398 kg Targeted physical exam is performed on this date in general this is a well-nourished well-developed female in no acute distress, breathing is noted to be nonlabored, heart has a regular rate and rhythm, abdomen is gravid, heart tones returned be category 1 and she is [place] every 2-3 minutes, on cervical exam she is 4/90/-2 station amniotomy is performed and cl ear fluid is obtained. Results Result Diagrams: 11/16/22 23:30 Abnormal Lab Results - Last 24 Hours (Table) 11/16/22 11/16/22 Range/Units 23:20 23:30 WBC 13.5 H (3.8-10.6) k/uL Neutrophils # 10.6 H (1.3-7.7) k/uL Urine Protein Trace H (Negative) Urine Ketones 2+ H (Negative) Urine Blood Small H (Negative) Urine Mucus Rare H (None) /hpf Assessment and Plan (1) Term Current Visit: Yes Status: Acute Code(s): Z34.90 - ENCNTR FOR SUPRVSN OF NORMAL , UNSP, UNSP TRIMESTER SNOMED Code(s): 86779635 (2) Active labor Current Visit: Yes Status: Acute Code(s): NQU9996 - SNOMED Code(s): 715311101 Plan: 22-year-old at 38-0/7 weeks presents with complaints of contractions. Patient is deemed to be in active labor with noted cervical change. Amniotomy was performed and clear fluid was obtained. Patient does desire epidural. Anesthesia is notified and will place epidural. We will monitor closely and anticipate spontaneous vaginal delivery.
[2022-11-17] MEDS: IBUPROFEN 600 MG TAB PO SCH ×2 (17:45→20:06)
[2022-11-17] MEDS: SENNOSIDES-DOCUSATE SODIUM 1 EACH TAB PO SCH (20:06)
[2022-11-18] MEDS: IBUPROFEN 600 MG TAB PO SCH ×3 (06:59→21:28)
[2022-11-18] MEDS: SENNOSIDES-DOCUSATE SODIUM 1 EACH TAB PO SCH ×2 (07:40→21:25)
[2022-11-18] MEDS ORDERED: PRENATAL VIT-IRON-FOLIC ACID 1 EACH TABLET PO SCH (09:00)
[2022-11-18] MEDS ORDERED: FLUoxetine HCL 10 MG CAP PO SCH (09:00)
--- NOTE | 2022-11-18 09:26 | P.PNOBGVD ---
Subjective - Subjective Principal diagnosis: PPD 1 Interval history: Patient is doing well . she denies concerns she is ambulating and voiding without difficulty, lochia is moderate. without difficulty. she is tolerating a regular diet without nausea or vomiting. Patient reports: Reports appetite normal, Reports voiding normally, Reports pain well controlled, Reports ambulating normally [place]: doing well, nursing well Objective - Latest Vital Signs Latest vital signs: Vital Signs Temp Pulse Resp BP Pulse Ox 11/18/22 08:00 97.7 F 94 16 124/78 11/18/22 04:00 98.7 F 100 18 118/74 11/18/22 00:00 97.6 F 95 16 132/74 98 11/17/22 18:58 98.3 F 106 H 16 128/69 11/17/22 18:28 98.6 F 109 H 16 144/66 11/17/22 17:58 98.6 F 93 16 123/57 11/17/22 17:43 97 16 122/58 11/17/22 17:28 98.7 F 96 16 135/71 11/17/22 17:13 104 H 16 124/61 11/17/22 16:58 98.9 F 112 H 18 140/64 Intake and Output 11/17/22 11/18/22 11/18/22 22:59 06:59 14:59 Intake Total 179.833 Output Total 265 Balance -85.167 Intake: Intake, IV Titration 179.833 Amount Oxytocin 30 Units/500 ml 179.833 Ns 30 unit In Saline 1 500ml.bag @ Per Protocol IV .Q0M [facility] Rx#:[id number] Output: Output, Quantitative 265 Blood Loss Other: # Voids 1 2 1 - Exam Extremities: Present: normal Abdomen: Present: normal appearance, soft Uterus: Present: normal, firm Assessment and Plan (1) Term Current Visit: Yes Status: Acute Code(s): Z34.90 - ENCNTR FOR SUPRVSN OF NORMAL , UNSP, UNSP TRIMESTER SNOMED Code(s): 49880937 (2) Active labor Current Visit: Yes Status: Acute Code(s): AYX7500 - SNOMED Code(s): 351042114 (3) Status post vaginal delivery Current Visit: Yes Status: Acute Code(s): RGZ3696 - SNOMED Code(s): 434017713 (4) Obstetric vaginal laceration with first degree perineal laceration Current Visit: Yes Status: Acute Code(s): O70.0 - FIRST DEGREE PERINEAL LACERATION DURING DELIVERY SNOMED Code(s): 252170569 Plan: Patient is doing well . Plan to continue with routine care likely discharge tomorrow, plan circumcision per patients request tomorrow am.
[2022-11-19] MEDS: IBUPROFEN 600 MG TAB PO SCH ×2 (05:16→06:56)
[2022-11-19 08:21] VITALS: BP 126/73; PULSE 73; RESP 16; TEMP 98.1
--- NOTE | 2022-11-19 10:16 | P.DS ---
Providers Date of admission: 11/17/22 01:26 Expected date of discharge: 11/19/22 Attending physician: Destini Nunez Primary care physician: Stated None - Discharge Diagnosis(es) (1) Term Current Visit: Yes Status: Acute (2) Active labor Current Visit: Yes Status: Acute (3) Status post vaginal delivery Current Visit: Yes Status: Acute (4) Obstetric vaginal laceration with first degree perineal laceration Current Visit: Yes Status: Acute Hospital Course: this is a 22-year-old 1 para 0 that was admitted on 11/17 with complaints of regular painful contractions. Patient had been receiving routine care with myself which is been essentially uncomplicated. Patient was admitted contractions were noted to be every 2-4 minutes. Patient underwent amniotomy and clear fluid was obtained. Patient did receive an epidural for pain control throughout labor. Patient did receive Pitocin augmentation of labor after the epidural, contractions were spacing post placement. Patient made progress toward complete. Once patient was noted to be completely dilated she began pushing and had a normal spontaneous vaginal delivery of a viable male at 1646, weight of 7 lbs. 14 oz., Apgars of 67 and 8. Patient's course has been essentially uneventful. Patient has been refusing her Prozac as it makes her "sleepy". Patient states she will resume once she gets home. Patient is breast-feeding without difficulty. She states her lochia is moderate. Her pain is controlled. She is quite tearful and I have encouraged her to continue with her Prozac. Patient Condition at Discharge: Good Plan - Discharge Summary New Discharge Prescriptions: No Action Aspirin 81 mg PO DAILY Vit No.179/Iron/Folic [ Tablet] 1 tablet PO DAILY FLUoxetine HCL [PROzac] 1 tab PO DAILY Discharge Medication List Aspirin 81 mg PO DAILY 10/15/22 [History] FLUoxetine HCL [PROzac] 1 tab PO DAILY 10/15/22 [History] Vit No.179/Iron/Folic [ Tablet] 1 tablet PO DAILY 10/15/22 [History] Follow up Appointment(s)/Referral(s): Destini Nunez DO [Doctor of Osteopathic Medicine] - 4 Weeks Patient Instructions/Handouts: Vaginal Delivery (GEN), Vaginal Delivery (DC) Activity/Diet/Wound Care/Special Instructions: no tub baths or intercourse until 6 weeks . Patient is to call the office and make a routine visit 4 weeks. Patient is counseled on depression and encouraged to continue with her Prozac. Should she have any increasing symptoms she is urged to call the office and be seen sooner. Discharge Disposition: HOME SELF-CARE
== END 2022-11-19 11:30 | disposition home or self-care (01) | DRG 807 ==
LOC: FBPOP 21:34 → 4FBP 11-17 01:26
PROVIDERS: ADMIT Obstetrics & Gynecology; ATTEND Obstetrics & Gynecology Obstetrics
PROC: 10E0XZZ Delivery of Products of Conception, External Approach (ICD-10-PCS; principal; 2022-11-17)
PROC: 0HQ9XZZ Repair Perineum Skin, External Approach (ICD-10-PCS; 2022-11-17)
PROC: 10907ZC Drainage of Amniotic Fluid, Therapeutic from Products of Conception, Via Natural or Artificial Opening (ICD-10-PCS; 2022-11-17)
DX: O69.81X0 Labor and delivery complicated by cord around neck, without compression, not applicable or unspecified (principal); Z37.0 Single live birth; O70.0 First degree perineal laceration during delivery; Z3A.38 38 weeks gestation of pregnancy; Z79.82 Long term (current) use of aspirin; Z79.899 Other long term (current) drug therapy
CPT/HCPCS: 59025; 81001; 84112; 85025; 86850; 86900; 86901; 96361; 99213

== ENCOUNTER 2024-04-15 19:37 | Emergency (ER) | payer BC ==
[2024-04-15 20:10] VITALS: RESP 18; TEMP 98.4
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
[2024-04-15] MEDS: ORPHENADRINE 30 MG/ML 2 ML VIAL IM STA (21:35)
[2024-04-15] MEDS: KETOROLAC 15 MG/ML 1 ML VIAL IM STA (22:15)
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
[2024-04-15 22:47] VITALS: BP 106/69; PULSE 75
== END 2024-04-15 22:45 | disposition home or self-care (01) ==
LOC: EC 19:37
CPT/HCPCS: 70450; 72125; 96372; 99284

== ENCOUNTER 2024-05-07 06:04 | Emergency (ER) | payer BC ==
--- NOTE | 2024-05-07 06:20 | ED ---
Female Urogenital HPI - General Chief complaint: Vaginal Bleeding Stated complaint: Abd pain/vaginal bleeding-6 weeks preg Time Seen by Provider: 05/07/24 06:20 Source: patient, RN notes reviewed Mode of arrival: ambulatory Limitations: no limitations - History of Present Illness Initial comments: This is a 23-year-old female, [id number], with presenting to the emergency department for chief complaint of pelvic/lower abdominal cramping and vaginal bleeding over the past 2 days. Patient states that during the weekend she has been experiencing passage of blood clots. Patient is approximately 6 weeks . Patient has not had ultrasound testing yet for this states that is scheduled for next week. She is also been having a few episodes of diarrhea over the past 2 days as well. She denies shortness of breath, heart palpitations, dizziness or lightheadedness. Denies urinary symptoms. Patient states that she is attempted take Tylenol over the weekend with minimal relief. Last Menstrual Period: 03/30/24 - Related Data Home Medications Medication Instructions Recorded Confirmed Aspirin 81 mg PO DAILY 10/15/22 11/16/22 FLUoxetine HCL [PROzac] 1 tab PO DAILY 10/15/22 11/16/22 Vit No.179/Iron/Folic 1 tablet PO DAILY 10/15/22 11/16/22 [ Tablet] Previous Rx's Medication Instructions Recorded Cyclobenzaprine [Flexeril] 10 mg PO TID PRN #15 tab 04/15/24 Nitrofurantoin Monohyd/M-Cryst 100 mg PO Q12HR #14 cap 05/07/24 [Macrobid] Allergies Allergy/AdvReac Type Severity Reaction Status Date / Time Latex, Natural Rubber AdvReac Rash/Hives Verified 05/07/24 06:14 Review of Systems ROS Statement: Those systems with pertinent positive or pertinent negative responses have been documented in the HPI. ROS Other: All systems not noted in ROS Statement are negative. Past Medical History Past Medical History: No Reported History History of Any Multi-Drug Resistant Organisms: None Reported Past Surgical History: Adenoidectomy, Tonsillectomy Past Anesthesia/Blood Transfusion Reactions: No Reported Reaction Past Psychological History: No Psychological Hx Reported Smoking Status: Never smoker Past Alcohol Use History: None Reported Past Drug Use History: None Reported - Past Family History Mother Family Medical History: No Reported History General Exam Limitations: no limitations General appearance: alert, in no apparent distress ENT exam: Present: normal exam, mucous membranes moist Neck exam: Present: normal inspection. Absent: tenderness, meningismus, lymphadenopathy Respiratory exam: Present: normal lung sounds bilaterally. Absent: respiratory distress, wheezes, rales, rhonchi, stridor Cardiovascular Exam: Present: regular rate, normal rhythm, normal heart sounds. Absent: systolic murmur, diastolic murmur, rubs, gallop, clicks GI/Abdominal exam: Present: soft, tenderness (LLQ/pelvic), normal bowel sounds. Absent: distended, guarding, rebound, rigid Extremities exam: Present: normal inspection, full ROM, normal capillary refill. Absent: tenderness, pedal edema, joint swelling, calf tenderness Back exam: Present: normal inspection Skin exam: Present: warm, dry, intact, normal color. Absent: rash Course Vital Signs 05/07/24 05/07/24 06:14 08:35 Temperature 98.3 F 98.0 F Pulse Rate 100 86 Respiratory 16 18 Rate Blood Pressure 124/63 122/68 O2 Sat by Pulse 96 99 Oximetry Medical Decision Making - Medical Decision Making Was pt. sent in by a medical professional or institution (, PA, STEAM PLANT OPERATOR, urgent care, hospital, or penitentiary...) When possible be specific @ -No Did you speak to anyone other than the patient for history (EMS, parent, family, police, friend...)? What history was obtained from this source @ -No Did you review nursing and triage notes (agree or disagree)? Why? @ -I reviewed and agree with nursing and triage notes Were old charts reviewed (outside hosp., previous admission, EMS record, old EKG, old radiological studies, urgent care reports/EKG's, penitentiary records)? Report findings @ -No old charts were reviewed Differential Diagnosis (chest pain, altered mental status, abdominal pain women, abdominal pain men, vaginal bleeding, weakness, fever, dyspnea, syncope, headache, dizziness, GI bleed, back pain, seizure, CVA, palpatations, mental health, musculoskeletal)? @ -Differential Vaginal Bleeding: Spontaneous , threatened , molar , ectopic , bloody show, incompetent cervix, abruptioplacenta, placenta previa, uterine rupture, dysfunctional uterine bleeding, hemorrhage, uterine fibroids, this is not meant to be an all-inclusive list. EKG interpreted by me (3pts min.). @ -None X-rays interpreted by me (1pt min.). @ -None done CT interpreted by me (1pt min.). @ -None done U/S interpreted by me (1pt. min.). @ - ultrasound reveals a gestation with 2 separate gestational sacs and yolk sacs estimated at 5 weeks 5 days and 6 weeks 0 days with no poles identified and no cardiac motion evident What testing was considered but not performed or refused? (CT, X-rays, U/S, labs)? Why? @ -None What meds were considered but not given or refused? Why? @ -None Did you discuss the management of the patient with other professionals (professionals i.e. , PA, STEAM PLANT OPERATOR, lab, RT, psych nurse, vp digital marketing social media and crm, cad design engineer, teacher, loss prevention officer, case management associate)? Give summary @ -No Was smoking cessation discussed for >3mins.? @ -No Was critical care preformed (if so, how long)? @ -No Were there social determinants of health that impacted care today? How? (Homelessness, low income, unemployed, alcoholism, drug addiction, transportation, low edu. Level, literacy, decrease access to med. care, [place] [facility], rehab)? @ -No Was there de-escalation of care discussed even if they declined (Discuss DNR or withdrawal of care, Hospice)? DNR status @ -No What co-morbidities impacted this encounter? (DM, HTN, Smoking, COPD, CAD, Cancer, CVA, ARF, Chemo, Hep., AIDS, mental health diagnosis, sleep apnea, morbid obesity)? @ -None Was patient admitted / discharged? Hospital course, mention meds given and route, prescriptions, significant lab abnormalities, going to OR and other pertinent info. @ -discharged. 23-year-old female, 6 weeks gestation with vaginal bleeding. On my evaluation of the patient she is resting comfortably no signs acute distress.'s are stable. Physical examination remarkable for tenderness to palpation of left lower quadrant/pelvis. Abdomen is soft with no signs of rebound tenderness or rigidity. Patient is offered Tylenol however is declined. She will be evaluated via laboratory testing and ultrasound evaluation. She is in agreement with this plan. Labs remarkable for urinalysis that is cloudy in appearance large leukocyte esterase and 11 white blood cells. hcg level of 1954 0, blood type is A +, concerning for no pole is identified with no cardiac motion evident with estimated gestational age of 5 weeks 5 days and 6 0 0 days. Recommend that patient follow-up as scheduled with OB next week for further evaluation. All questions answered at bedside and strict return parameters discussed with the patient she is verbalized understanding. Case discussed with Dr. Mas Undiagnosed new problem with uncertain prognosis? @ -No Drug Therapy requiring intensive monitoring for toxicity (Heparin, Nitro, Insulin, Cardizem)? @ -No Were any procedures done? @ -No Diagnosis/symptom? @ -vaginal bleeding during , threatened , intrauterine gest ation Acute, or Chronic, or Acute on Chronic? @ -Acute Uncomplicated (without systemic symptoms) or Complicated (systemic symptoms)? @ -Uncomplicated Side effects of treatment? @ -No Exacerbation, Progression, or Severe Exacerbation? @ -No Poses a threat to life or bodily function? How? (Chest pain, USA, NC, pneumonia, PE, COPD, DKA, ARF, appy, cholecystitis, CVA, Diverticulitis, Homicidal, Suicid al, threat to staff... and all critical care pts) @ -No - Lab Data Result diagrams: 05/07/24 06:35 05/07/24 06:35 Lab Results 05/07/24 05/07/24 05/07/24 Range/Units 06:35 06:35 06:35 WBC 8.4 (3.8-10.6) k/uL RBC 4.74 (3.80-5.40) m/uL Hgb 13.5 (11.4-16.0) gm/dL Hct 41.5 (34.0-46.0) % MCV 87.6 (80.0-100.0) fL MCH 28.5 (25.0-35.0) pg MCHC 32.6 (31.0-37.0) g/dL RDW 13.3 (11.5-15.5) % Plt Count 248 (150-450) k/uL MPV 7.9 Neutrophils % 66 % Lymphocytes % 26 % Monocytes % 4 % Eosinophils % 2 % Basophils % 0 % Neutrophils # 5.5 (1.3-7.7) k/uL Lymphocytes # 2.2 (1.0-4.8) k/uL Monocytes # 0.4 (0-1.0) k/uL Eosinophils # 0.2 (0-0.7) k/uL Basophils # 0.0 (0-0.2) k/uL Sodium 138 (137-145) mmol/L Potassium 4.1 (3.5-5.1) mmol/L Chloride 106 (98-107) mmol/L Carbon Dioxide 24 (22-30) mmol/L Anion Gap 8 mmol/L BUN 10 (7-17) mg/dL Creatinine 0.73 (0.52-1.04) mg/dL Est GFR (CKD-EPI)AfAm >90 (>60 ml/min/1.73 sqM) Est GFR (CKD-EPI)NonAf >90 (>60 ml/min/1.73 sqM) Glucose 103 H (74-99) mg/dL Calcium 9.0 (8.4-10.2) mg/dL Total Bilirubin 0.2 (0.2-1.3) mg/dL AST 19 (14-36) U/L ALT 15 (4-34) U/L Alkaline Phosphatase 62 (38-126) U/L Total Protein 6.5 (6.3-8.2) g/dL Albumin 3.9 (3.5-5.0) g/dL HCG, Quant 78091.2 mIU/mL Urine Color Light Yellow Urine Appearance Cloudy H (Clear) Urine pH 6.5 (5.0-8.0) Ur Specific [place] 1.023 (1.001-1.035) Urine Protein Negative (Negative) Urine Glucose (UA) Negative (Negative) Urine Ketones Negative (Negative) Urine Blood Negative (Negative) Urine Nitrite Negative (Negative) Urine Bilirubin Negative (Negative) Urine Urobilinogen <2.0 (<2.0) mg/dL Ur Leukocyte Esterase Large H (Negative) Urine RBC 2 (0-5) /hpf Urine WBC 11 H (0-5) /hpf Ur Squamous Epith Cells 11 H (0-4) /hpf Urine Bacteria Rare H (None) /hpf Urine Mucus Rare H (None) /hpf Blood Type Blood Type Recheck Bld Type Recheck Status 05/07/24 Range/Units 06:35 WBC (3.8-10.6) k/uL RBC (3.80-5.40) m/uL Hgb (11.4-16.0) gm/dL Hct (34.0-46.0) % MCV (80.0-100.0) fL MCH (25.0-35.0) pg MCHC (31.0-37.0) g/dL RDW (11.5-15.5) % Plt Count (150-450) k/uL MPV Neutrophils % % Lymphocytes % % Monocytes % % Eosinophils % % Basophils % % Neutrophils # (1.3-7.7) k/uL Lymphocytes # (1.0-4.8) k/uL Monocytes # (0-1.0) k/uL Eosinophils # (0-0.7) k/uL Basophils # (0-0.2) k/uL Sodium (137-145) mmol/L Potassium (3.5-5.1) mmol/L Chloride (98-107) mmol/L Carbon Dioxide (22-30) mmol/L Anion Gap mmol/L BUN (7-17) mg/dL Creatinine (0.52-1.04) mg/dL Est GFR (CKD-EPI)AfAm (>60 ml/min/1.73 sqM) Est GFR (CKD-EPI)NonAf (>60 ml/min/1.73 sqM) Glucose (74-99) mg/dL Calcium (8.4-10.2) mg/dL Total Bilirubin (0.2-1.3) mg/dL AST (14-36) U/L ALT (4-34) U/L Alkaline Phosphatase (38-126) U/L Total Protein (6.3-8.2) g/dL Albumin (3.5-5.0) g/dL HCG, Quant mIU/mL Urine Color Urine Appearance (Clear) Urine pH (5.0-8.0) Ur Specific [place] (1.001-1.035) Urine Protein (Negative) Urine Glucose (UA) (Negative) Urine Ketones (Negative) Urine Blood (Negative) Urine Nitrite (Negative) Urine Bilirubin (Negative) Urine Urobilinogen (<2.0) mg/dL Ur Leukocyte Esterase (Negative) Urine RBC (0-5) /hpf Urine WBC (0-5) /hpf Ur Squamous Epith Cells (0-4) /hpf Urine Bacteria (None) /hpf Urine Mucus (None) /hpf Blood Type A Positive Blood Type Recheck A Pos Bld Type Recheck Status No Disposition Clinical Impression: Threatened , Twin gestation in first trimester Disposition: HOME SELF-CARE Condition: Good Instructions (If sedation given, give patient instructions): Threatened Miscarriage (ED) Additional Instructions: Please return to the Emergency Department if symptoms worsen or any other con cerns. Complete antibiotic as prescribed for bacteria in urine during . Follow-up as scheduled with OB next week for repeat ultrasound and further evaluation. Prescriptions: Nitrofurantoin Monohyd/M-Cryst [Macrobid] 100 mg PO Q12HR #14 cap Is patient prescribed a controlled substance at d/c from ED?: No Referrals: Elliott Gunter MD [Primary Care Provider] - 1-2 days Time of Disposition: 08:26
[2024-05-07 06:49] LABS: Basophils % (A) 0 %; Eosinophils # (A) 0.2 k/uL (0-0.7); Eosinophils % (A) 2 %; HCT 41.5 % (34.0-46.0); HGB 13.5 gm/dL (11.4-16.0); Lymphocytes # (A) 2.2 k/uL (1.0-4.8); Lymphocytes % (A) 26 %; MCH 28.5 pg (25.0-35.0); MCHC 32.6 g/dL (31.0-37.0); MCV 87.6 fL (80.0-100.0); Mean Platelet Volume 7.9; Monocytes # (A) 0.4 k/uL (0-1.0); Monocytes % (A) 4 %; Neutrophils # (A) 5.5 k/uL (1.3-7.7); Neutrophils % (A) 66 %; Platelet Count 248 k/uL (150-450); RBC 4.74 m/uL (3.80-5.40); RDW 13.3 % (11.5-15.5); WBC 8.4 k/uL (3.8-10.6)
[2024-05-07 06:59] LABS: ALT 15 U/L (4-34); AST 19 U/L (14-36); African American GFR (CKD) >90 (>60 ml/min/1.73 sqM); Albumin 3.9 g/dL (3.5-5.0); Alkaline Phosphatase 62 U/L (38-126); Anion Gap 8 mmol/L; Blood Urea Nitrogen 10 mg/dL (7-17); Carbon Dioxide 24 mmol/L (22-30); Chloride 106 mmol/L (98-107); Glucose 103 mg/dL (74-99); Non-African American GFR(CKD) >90 (>60 ml/min/1.73 sqM); Potassium 4.1 mmol/L (3.5-5.1); Sodium 138 mmol/L (137-145); Total Bilirubin 0.2 mg/dL (0.2-1.3); Total Protein 6.5 g/dL (6.3-8.2)
[2024-05-07 07:01] LABS: Appearance,Urine Cloudy (Clear); Bacteria,Urine Rare /hpf; Bilirubin,Urine Negative (Negative); Blood,Urine Negative (Negative); Color,Urine Light Yellow; Glucose,Urine (UA) Negative (Negative); Ketones,Urine Negative (Negative); Leukocyte Esterase,Urine Large (Negative); Mucus,Urine Rare /hpf; Nitrite,Urine Negative (Negative); PH, Urine 6.5 (5.0-8.0); Protein,Urine Negative (Negative); RBC,Urine 2 /hpf (0-5); Specific Gravity,Urine 1.023 (1.001-1.035); Squamous Epithelial Cell,Urine 11 /hpf (0-4); Urobilinogen,Urine <2.0 mg/dL (<2.0); WBC,Urine 11 /hpf (0-5)
[2024-05-07 08:08] LABS: HCG,Quantitative Serum 19540.2 mIU/mL
--- NOTE | 2024-05-07 08:12 | US ---
EXAMINATION TYPE: US OB <= 14 wk twins DATE OF EXAM: 05/07/2024 COMPARISON: NONE CLINICAL INDICATION: Female, 23 years old with history of pelvic cramping, bleeding/clots, 6 weeks; Patient states she has been on medicine to help ovulation x 1 year. Left side discomfort. Spotting. TECHNIQUE: Transabdominal (TA) with grayscale imaging of gestation's. FINDINGS: EXAM MEASUREMENTS: GESTATIONAL AGE / DATING Physician Established: Not yet established Dates by LMP: ( 5 weeks/3 days) EDC: 01/04/2025 Dates by First Scan: No previous this is first scan Dates by Current Scan for Baby A: (5 weeks/5 days) EDC: 01/02/2025 Dates by Current Scan for Baby B: (6 weeks/0 days) EDC: 12/31/2024 MATERNAL ANATOMY Uterus: 9.1 x 5.4 x 4.7 cm Right Ovary: 3.8 x 2.0 x 2.2 cm Left Ovary: 4.3 x 3.1 x 3.1 cm Post CDS / Adnexa: no free fluid Presence of free fluid: no Presence of corpus luteal cyst: left anechoic lesion - 2.7 cm Presence of subchorionic bleed: No Presence of two separate gestational sacs: Yes GESTATION / SURVEY TWIN A CRL: Not visualized at time of scan GS morphology: Maternal right Gestational Sac MSD: ( 5 weeks/5 days) Yolk Sac (normal less than 6mm): 2.1 mm IUP: Gestational sac and Yolk sac visualized within endometrium TWIN B CRL: Not visualized at time of scan GS morphology: Maternal left Gestational Sac MSD: (6 weeks/0 days) Yolk Sac (normal less than 6mm): 2.5 IUP: Gestational sac and Yolk sac visualized within endometrium Date of LMP: 03/30/2024, Beta HcG (if available): Not available at this time Two gestational sacs seen within endometrium with yolk sacs. No CRL visualized either gestational sa c at time of scan. Correlate with beta hCG and follow-up exam recommended. IMPRESSION: 1. Twin gestation with 2 separate gestational sacs and yolk sacs. Gestational age is estimated at 5 w eeks 5 days and 6 weeks 0 days based on mean sac diameter. 2. poles not identified. No cardiac motion evident this time. 3. Follow-up imaging with correlation beta hCG recommended. [facility], , 05/07/2024 8:10 AM
[2024-05-07 08:37] VITALS: BP 122/68; PULSE 86; RESP 18; TEMP 98
== END 2024-05-07 08:37 | disposition home or self-care (01) ==
LOC: EC 06:04
DX: O20.0 Threatened abortion (principal); O99.891 Other specified diseases and conditions complicating pregnancy; Z91.040 Latex allergy status; Z90.89 Acquired absence of other organs; Z3A.01 Less than 8 weeks gestation of pregnancy
CPT/HCPCS: 36415; 76801; 76802; 80053; 81001; 84702; 85025; 86900; 86901; 99284

== ENCOUNTER 2024-09-02 14:38 | Outpatient (CLI) | payer BC ==
[2024-09-02] MEDS: LACTATED RINGERS 1,000 ML IV ONE (15:30)
[2024-09-02 18:34] VITALS: BP 119/58; PULSE 106; RESP 18; TEMP 98.3
== END 2024-09-02 18:20 | disposition home or self-care (01) ==
LOC: FBPOP 14:38
PROVIDERS: ATTEND Obstetrics & Gynecology
DX: Z53.9 Procedure and treatment not carried out, unspecified reason (principal)
CPT/HCPCS: 82731; 96360; 96361; 96367; 99214

== ENCOUNTER 2024-09-17 17:33 | Outpatient (CLI) | payer BC ==
[2024-09-17] MEDS: LACTATED RINGERS 1,000 ML IV ONE (18:32)
[2024-09-17 18:40] LABS: Appearance,Urine Clear (Clear); Bilirubin,Urine Negative (Negative); Blood,Urine Negative (Negative); Color,Urine Colorless; Glucose,Urine (UA) Negative (Negative); Ketones,Urine Negative (Negative); Leukocyte Esterase,Urine Negative (Negative); Nitrite,Urine Negative (Negative); Protein,Urine Negative (Negative); Specific Gravity,Urine 1.005 (1.001-1.035); Urobilinogen,Urine <2.0 mg/dL (<2.0)
[2024-09-17] MEDS: TERBUTALINE 1 MG/ML VIAL SQ PRN (18:57)
[2024-09-17] MEDS ORDERED: CALCIUM GLUCONATE 1 GM/10 ML VIAL IV PRN (19:50)
[2024-09-17] MEDS: BETAMET ACET-BETAMETH SOD PHOS 6 MG/ML MDV IM SCH (20:02)
[2024-09-17] MEDS: MAGNESIUM SULFATE GM 6 GM in SODIUM CHLORIDE 0.9% 100 ML IVPB ONE (20:25)
[2024-09-17] MEDS ORDERED: MAGNESIUM SULFATE MG 6,000 MG in SODIUM CHLORIDE 0.9% 50 ML IVPB ONE (20:28)
--- NOTE | 2024-09-17 20:28 | P.HPOB ---
History of Present Illness H&P Date: 09/17/24 Chief Complaint: 24-6/7 weeks, twin , labor The patient is a 23-year-old 2 para 1-0-0-1 admitted to triage at 24-6/7 weeks as established by last menstrual period and confirmed by second trimester ultrasound. She has a known diagnosis of diamniotic dichorionic twins and presented to labor and delivery with significant and uncomfortable contractions. She has had a trial of terbutaline for toco lysis which has failed and is having magnesium sulfate initiated at this time. Her thus far has been otherwise uncomplicated though she did conceive with Femara. On labor and delivery, both twins are significantly active but very difficult to monitor given the early gestational age and activity. Contractions appear to be every 2 to 4 minutes at this time. The case has been discussed with the receiving physician at [facility] in [place], Dr. Crawford, who has accepted the transfer secondary to early gestational age and potential need for neonatology as well as perinatology. Obstetrical history: 2 para 1-0-0-1 with current statistics listed in history of present illness. EDC of 01/01/2025 was established by last menstrual period and confirmed by second trimester ultrasound. Laboratory workup demonstrates a blood type of A+ with a negative antibody screen. Rubella status is immune. The remainder of the laboratory workup was within normal limits. Early Glucola was elevated but followed by a normal 3-hour glucose tolerance test. She has not far enough from a gestational standpoint to of undergone second trimester Glucola yet. Group B strep status is undetermined. Gynecologic history: Unremarkable with no history of any infections to include STDs. Review of Systems Review of systems is confined to history of present illness. Past Medical History Past Medical History: No Reported History History of Any Multi-Drug Resistant Organisms: None Reported Past Surgical History: Adenoidectomy, Tonsillectomy Past Anesthesia/Blood Transfusion Reactions: No Reported Reaction Smoking Status: Never smoker - Past Family History Mother Family Medical History: No Reported History Medications and Allergies Home Medications Medication Instructions Recorded Confirmed Type Vit No.179/Iron/Folic 1 tablet PO DAILY 10/15/22 09/02/24 History [ Tablet] RX: Aspirin 81 mg PO DAILY 10/15/22 09/02/24 History Sennosides/Docusate Sodium [Senna 1 tab PO DAILY 09/02/24 09/02/24 History Plus 8.6-50 mg Tablet] Sertraline [Zoloft] 50 mg PO DAILY 09/02/24 09/02/24 History Allergies Allergy/AdvReac Type Severity Reaction Status Date / Time adhesive AdvReac Rash/Hives Verified 09/17/24 17:55 Latex, Natural Rubber AdvReac Rash/Hives Verified 09/17/24 17:55 Exam Intake and Output 09/17/24 09/17/24 09/17/24 06:59 14:59 22:59 Other: Weight 117.934 kg In general, this is a mild to moderately obese white female in some discomfort secondary to contractions. Her heart has a regular rhythm and rate without murmur. Her lungs are clear to auscultation bilaterally in all bauer. Her abdomen is gravid, nondistended, soft, nontender, without any palpable masses aside from the uterine fundus. Her extremities are without any cyanosis, clubbing, or significant edema and are nontender to palpation bilaterally. Digital cervical examination performed by the nursing staff demonstrates her cervix to be fingertip dilation, 60 to 70% effaced, with the presentation undetermined at this time. The exam is not significantly changed from initial presentation but the patient remains quite uncomfortable and carolina regularly. Assessment and Plan (1) 24 weeks gestation of Current Visit: Yes Status: Acute Code(s): Z3A.24 - 24 WEEKS GESTATION OF SNOMED Code(s): 456251373 (2) Dichorionic diamniotic twin gestation Current Visit: Yes Status: Acute Code(s): O30.049 - TWIN , DICHORIONIC/DIAMNIOTIC, UNSP TRIMESTER SNOMED Code(s): 749544076 (3) labor Current Visit: Yes Status: Acute Code(s): O60.00 - LABOR WITHOUT DELIVERY, UNSPECIFIED TRIMESTER SNOMED Code(s): 4863405 Plan: The patient has not been stabilized using terbutaline. IV hydration has also been employed. Urinalysis is negative. Magnesium sulfate is being initiated at 6 g IV bolus followed by 2 g/h. Betamethasone is to be started as well. She will be given a dose of ampicillin 2 g intravenously. Transfer has been arranged to [facility] with the receiving physician, Dr. Crawford. Transport has been contacted.
[2024-09-17] MEDS: MAGNESIUM SULFATE-WATER PMX 20 GM in WATER FOR INJECTION 1 500ML.BAG IV SCH (20:40)
[2024-09-17] MEDS: AMPICILLIN 2,000 MG in SODIUM CHLORIDE 0.9% 100 ML IVPB STA (20:41)
[2024-09-18 04:52] VITALS: BP 136/81; PULSE 96; RESP 16
== END 2024-09-17 21:34 ==
LOC: FBPOP 17:33
PROVIDERS: ATTEND Obstetrics & Gynecology
DX: O30.042 Twin pregnancy, dichorionic/diamniotic, second trimester (principal); O60.02 Preterm labor without delivery, second trimester; Z3A.24 24 weeks gestation of pregnancy; Z91.048 Other nonmedicinal substance allergy status; Z91.040 Latex allergy status
CPT/HCPCS: 99215; 96361; 96365; 96367; 96372; 36415; 82731; 81003; J3105; J3475 ×2; J0290; J0702

== ENCOUNTER 2024-10-14 23:55 | Observation (INO) | payer BC ==
[2024-10-15] MEDS: LACTATED RINGERS 1,000 ML IV ONE ×2 (00:15→03:29)
[2024-10-15] MEDS: TERBUTALINE 1 MG/ML VIAL SQ STA ×3 (00:19→00:58)
[2024-10-15] MEDS: NIFEdipine 10 MG CAP PO STA (01:22)
[2024-10-15 02:40] VITALS: BP 120/75; PULSE 101; RESP 16; TEMP 97.7
[2024-10-15] MEDS: INDOMETHACIN 25 MG CAP PO ONE (03:27)
[2024-10-15] MEDS: LACTATED RINGERS 1,000 ML IV SCH (03:29)
[2024-10-15] MEDS: MORPHINE SULFATE 4 MG/ML SYRINGE IM STA (05:31)
[2024-10-15] MEDS: MORPHINE SULFATE 4 MG/ML SYRINGE IVP STA (05:32)
--- NOTE | 2024-10-15 08:31 | P.HPOB ---
History of Present Illness H&P Date: 10/15/24 Chief Complaint: DI/Di twin gestation, 28 weeks contractions 24 yo G2, P1 at 28 weeks with known Di Di twin gestation. Patient had a recent diagnosis of polyhydramnios x 2. Patient states she began carolina on Tuesday but was able to "sleep them off". Patient states she awoke Tuesday morning with continued contractions and unable to rest. Patient presented to labor and delivery around midnight. Patient denies vaginal bleeding or loss of fluid. Patient notes mostly pelvic girdle pain. Patient does have an appointment with maternal- medicine in [place] on Tuesday given diagnosis of polyhydramnios x 2. Patient notes good movement. Review of Systems Constitutional: Denies chills, Denies fatigue, Denies fever Ears, nose, mouth and throat: Denies headache Cardiovascular: Reports leg edema Respiratory: Denies dyspnea Gastrointestinal: Denies constipation, Denies diarrhea, Denies nausea, Denies vomiting Genitourinary: Reports as per HPI, Reports Past Medical History Past Medical History: No Reported History History of Any Multi-Drug Resistant Organisms: None Reported Past Surgical History: Adenoidectomy, Tonsillectomy Past Anesthesia/Blood Transfusion Reactions: No Reported Reaction Past Psychological History: No Psychological Hx Reported Smoking Status: Never smoker Past Alcohol Use History: None Reported Past Drug Use History: None Reported - Past Family History Mother Family Medical History: No Reported History Medications and Allergies Home Medications Medication Instructions Recorded Confirmed Type Aspirin 81 mg PO DAILY 10/15/22 10/15/24 History Vit No.179/Iron/Folic 1 tablet PO DAILY 10/15/22 10/15/24 History [ Tablet] Sennosides/Docusate Sodium [Senna 1 tab PO DAILY 09/02/24 10/15/24 History Plus 8.6-50 mg Tablet] Sertraline [Zoloft] 50 mg PO DAILY 09/02/24 10/15/24 History Allergies Allergy/AdvReac Type Severity Reaction Status Date / Time adhesive AdvReac Rash/Hives Verified 09/17/24 17:55 Latex, Natural Rubber AdvReac Rash/Hives Verified 09/17/24 17:55 Exam Osteopathic Statement: *. No significant issues noted on an osteopathic structural exam other than those noted in the History and Physical/Consult. Vital Signs Temp Pulse Resp BP Pulse Ox 10/15/24 02:14 97.7 F 101 H 16 120/75 10/15/24 00:04 97.7 F 101 H 16 120/75 97 Intake and Output 10/14/24 10/15/24 10/15/24 22:59 06:59 14:59 Other: # Voids 3 Weight 119.295 kg targeted physical exam is done on this date in general this a well-nourished well-developed female resting comfortably in bed. heart tones are noted be reassuring for gestational age occasional contractions and uterine irritability is appreciated on toco cervical exam is deferred. Assessment and Plan (1) contractions Current Visit: Yes Status: Acute Code(s): O47.00 - FALSE LABOR BEFORE 37 COMPLETED WEEKS OF GEST, UNSP TRI SNOMED Code(s): 568390080 (2) Dichorionic diamniotic twin gestation Current Visit: No Status: Acute Code(s): O30.049 - TWIN , DICHORIONIC/DIAMNIOTIC, UNSP TRIMESTER SNOMED Code(s): 896113108 (3) Polyhydramnios Current Visit: Yes Status: Acute Code(s): O40.9XX0 - POLYHYDRAMNIOS, UNSP TRIMESTER, NOT APPLICABLE OR UNSP SNOMED Code(s): 42066410 Plan: 24-year-old G2, P1 at 20 weeks of gestation with known Di Di twin gestation. Patient with contractions, negative fibronectin. Will continue to monitor closely Oral Procardia 10 mg every 6 Methasone given previously Continue IV fluids, LR at 100
[2024-10-15] MEDS: NIFEdipine 10 MG CAP PO SCH (08:45)
[2024-10-15] MEDS: diphenhydrAMINE 50 MG CAP PO STA (08:45)
[2024-10-15] MEDS ORDERED: INDOMETHACIN 25 MG CAP PO SCH (09:00)
== END 2024-10-15 18:05 | disposition home or self-care (01) ==
LOC: FBPOP 23:55 → 4FBP 10-15 02:08 → INTOOBSV 10-15 02:08
PROVIDERS: ADMIT Obstetrics & Gynecology; ATTEND Obstetrics & Gynecology Obstetrics
DX: O60.03 Preterm labor without delivery, third trimester (principal); O30.043 Twin pregnancy, dichorionic/diamniotic, third trimester; O40.3XX0 Polyhydramnios, third trimester, not applicable or unspecified; Z3A.28 28 weeks gestation of pregnancy; Z79.82 Long term (current) use of aspirin; Z79.899 Other long term (current) drug therapy; Z91.040 Latex allergy status
CPT/HCPCS: 59025; 99214; 96361; 96372 ×2; 96374; 82731; G0378; G0379; J2270; J3105; 96360

== ENCOUNTER 2024-10-21 09:24 | Outpatient (CLI) | payer BC ==
[2024-10-21 10:41] VITALS: PULSE 85; RESP 17; TEMP 98
--- NOTE | 2024-11-10 11:13 | P.MSEPDOC ---
Presenting Problems - Arrival Data Date of Arrival on Unit: 10/21/24 Time of Arrival on Unit: 09:24 Mode of Transport: Ambulatory - Complaint OB-Reason for Admission/Chief Complaint: Rule Out PROM Comment: pt presents to triage for possible SROM since last night, has had to change underware several times due to some leaking fluid Medical History - Information : 2 Para: 1 Term: 1 : 0 Abortions: Spontaneous or Elective: 0 Number of Living Children: 1 - Gestational Age Gestational Age by LIZZ (wks/days): 29 Weeks and 5 Days - History Complications: Multiple Review of Systems - Review of Systems Constitutional: No problems Breast: No problems ENT: No problems Cardiovascular: No problems Respiratory: No problems Gastrointestinal: No problems Genitourinary: No problems Musculoskeletal: No problems Neurological: No problems Skin: No problems Vital Signs - Temperature Temperature: 98.0 F Temperature Source: Temporal Artery Scan - Pulse Right Brachial Pulse Rate: 85 Pulse Assessment Method: Automatic Cuff - Respirations Respiratory Rate: 17 Oxygen Delivery Method: Room Air Medical Screen Scoring - Uterine Contractions Frequency From (mins): 2 Frequency To (mins): 3 Duration From (seconds): 20 Duration To (seconds): 30 Intensity: Mild Resting: Soft to palpation - Assessment - Baby A Baseline FHR: 140 Heart Rate - NICHD Category: Category I (Normal) NST: Reactive - Assessment - Baby B Baseline FHR: 150 Heart Rate - NICHD Category: Category I (Normal) NST: Reactive Physician Notification - Notification Comment Comment: amniosure negative, reactive nst's, pt has appt with Dr. Nunez on Tue in the office, she will call [facility] for follow up appt Maternal Triage Index - Maternal Triage Index Presenting for scheduled procedure w/no complaint: No - Stat/Priority 1 Stat Priority 1: No - Urgent/Priority 2 Urgent Priority 2: Yes Provider Notified: Elroy Provider Notified Time: 10:10 Criteria Met for Priority 2: pt presents to triage for possible SROM since last night, has had to change underware several times due to some leaking fluid Disposition - Disposition OB Disposition: Triage, Discharge to home, Written follow up instructions reviewed Discharge Date: 10/21/24 Discharge Time: 10:20 I agree with the RN Medical Screening Exam: Yes Physician's MSE Comment: I have neither seen nor examined the patient. Case reviewed; plan agreed upon as documented in EMR&OBIX.: Yes Diagnosis: RELATED CONDITIONS, UNSPECIFIED, THIRD TRIMESTER
== END 2024-10-21 10:20 | disposition home or self-care (01) ==
LOC: FBPOP 09:24
PROVIDERS: ATTEND Obstetrics & Gynecology
DX: O26.893 Other specified pregnancy related conditions, third trimester (principal); Z91.040 Latex allergy status; Z91.048 Other nonmedicinal substance allergy status; Z3A.29 29 weeks gestation of pregnancy
CPT/HCPCS: 59025; 84112; 99213

== ENCOUNTER 2024-10-31 14:24 | Observation (INO) | payer BC ==
[2024-10-31] MEDS: LACTATED RINGERS 1,000 ML IV ONE (15:50)
[2024-10-31] MEDS: ACETAMINOPHEN IV (For NPO) 1,000 MG in EMPTY BAG 1 BAG IVPB PRN (16:08)
[2024-10-31] MEDS: TERBUTALINE 1 MG/ML VIAL SQ PRN (16:11)
--- NOTE | 2024-10-31 16:45 | P.HPOB ---
History of Present Illness H&P Date: 10/31/24 Chief Complaint: Di/Di twin gestation, contractions This is a 24-year-old 3 para 1-0-1-1 at 31 and 1 sevenths weeks with known Di Di twin gestation. Patient has struggled with contractions for many weeks at this point. Patient has been seen multiple times at [facility] in [place]. Patient has had a negative fibronectin on 10/14. Patient did receive betamethasone previously. Patient states contractions became worse this afternoon therefore she presented to OB triage. Patient is noted to be breathing through contractions with increased pressure. Upon evaluation in OB triage patient was noted to be 1 to 2 cm thick and high, no change from previous exams. G3, P1 #1 term spontaneous vaginal delivery #2 missed AB #3 current Review of Systems Constitutional: Reports fatigue, Denies chills, Denies fever Ears, nose, mouth and throat: Denies headache Cardiovascular: Reports leg edema Respiratory: Denies dyspnea Gastrointestinal: Denies nausea, Denies vomiting Genitourinary: Reports as per HPI, Reports Past Medical History Past Medical History: No Reported History History of Any Multi-Drug Resistant Organisms: None Reported Past Surgical History: Adenoidectomy, Tonsillectomy Past Anesthesia/Blood Transfusion Reactions: No Reported Reaction Smoking Status: Never smoker - Past Family History Mother Family Medical History: No Reported History Medications and Allergies Home Medications Medication Instructions Recorded Confirmed Type Aspirin 81 mg PO DAILY 10/15/22 10/31/24 History Vit No.179/Iron/Folic 1 tablet PO DAILY 10/15/22 10/31/24 History [ Tablet] Sennosides/Docusate Sodium [Senna 1 tab PO DAILY 09/02/24 10/31/24 History Plus 8.6-50 mg Tablet] Sertraline [Zoloft] 100 mg PO DAILY 09/02/24 10/31/24 History NIFEdipine [Procardia] 10 mg PO TID 10/31/24 10/31/24 History Allergies Allergy/AdvReac Type Severity Reaction Status Date / Time adhesive AdvReac Rash/Hives Verified 10/31/24 15:44 Latex, Natural Rubber AdvReac Rash/Hives Verified 10/31/24 15:44 Exam Osteopathic Statement: *. No significant issues noted on an osteopathic structural exam other than those noted in the History and Physical/Consult. Intake and Output 10/31/24 10/31/24 10/31/24 06:59 14:59 22:59 Other: Weight 119.665 kg Targeted physical exam is performed this date in general this is a well- nourished well-developed female in obvious distress, tearful and uncomfortable. Breathing is nonlabored, abdomen is gravid with twin gestation, heart tones are noted to be category 1 she is carol[place] irregularly worse with movement. Cervical exam is deferred by myself previously checked by RN 1-2 thick and high Assessment and Plan (1) 31 to 32 weeks gestation of Current Visit: Yes Status: Acute Code(s): NXM0109 - SNOMED Code(s): 823618039 (2) Dichorionic diamniotic twin gestation Current Visit: No Status: Acute Code(s): O30.049 - TWIN , DICHORIONIC/DIAMNIOTIC, UNSP TRIMESTER SNOMED Code(s): 696391297 (3) contractions Current Visit: No Status: Acute Code(s): O47.00 - FALSE LABOR BEFORE 37 COMPLETED WEEKS OF GEST, UNSP TRI SNOMED Code(s): 255885306 Plan: 24-year-old G3, P1 at 31 and 1 sevenths weeks presents with contractions. No cervical changes appreciated. Will plan to observe patient overnight, terbutaline protocol begun, IV fluids. Some relief after second terbutaline is given Consider Procardia pathway
[2024-10-31] MEDS: NIFEdipine 10 MG CAP PO SCH (17:03)
[2024-10-31 17:17] LABS: Appearance,Urine Clear (Clear); Bilirubin,Urine Negative (Negative); Blood,Urine Negative (Negative); Color,Urine Colorless; Glucose,Urine (UA) Negative (Negative); Ketones,Urine 1+ (Negative); Leukocyte Esterase,Urine Negative (Negative); Nitrite,Urine Negative (Negative); Protein,Urine Negative (Negative); Specific Gravity,Urine 1.007 (1.001-1.035); Urobilinogen,Urine <2.0 mg/dL (<2.0)
--- NOTE | 2024-10-31 17:43 | US ---
EXAMINATION TYPE: US OB limited twins DATE OF EXAM: 10/31/2024 COMPARISON: Ultrasound OB 05/07/2024 CLINICAL INDICATION: Female, 24 years old with history of 31 weeks carolina,polyhydramnios, twins; actively carolina during exam TECHNIQUE:: OBTA FINDINGS: GESTATIONAL AGE / DATING Physician Established: (31 weeks/1 days) EDC: 01/01/2025 No growth performed on today?s study per ordering physician SURVEY ROSALES Fetus A: 11.4 cm Normal ROSALES Fetus B: 13.2 cm Normal Ultrasound evidence of premature rupture of membranes? no PRESENTATION: Fetus A: Transverse Mat LT Fetus B: Transverse Mat RT HEART RATE: Fetus A:152bpm Fetus B:169bpm RHYTHM: Normal IMPRESSION: Twin live intrauterine gestation with normal ROSALES. [facility], , 10/31/2024 5:41 PM
[2024-10-31] MEDS: LACTATED RINGERS 1,000 ML IV SCH (17:51)
[2024-10-31] MEDS: diphenhydrAMINE 50 MG/ML 1 ML VIAL IVP PRN (19:20)
[2024-10-31] MEDS: ZOLPIDEM 5 MG TAB PO PRN (22:14)
[2024-10-31 23:51] VITALS: BP 112/55; PULSE 103; RESP 18; TEMP 96.6
[2024-11-01] MEDS: NIFEdipine 10 MG CAP PO SCH (04:07)
[2024-11-01] MEDS: ASPIRIN 81 MG PO SCH (09:11)
[2024-11-01] MEDS: PRENATAL VIT-IRON-FOLIC ACID 1 EACH TABLET PO SCH (09:11)
[2024-11-01] MEDS: SERTRALINE 100 MG TAB PO SCH (09:11)
[2024-11-01] MEDS: SENNOSIDES-DOCUSATE SODIUM 1 EACH TAB PO SCH (09:42)
--- NOTE | 2024-11-01 10:50 | P.DS ---
Providers Date of admission: 10/31/24 15:52 Expected date of discharge: 11/01/24 Attending physician: Destini Nunez Primary care physician: Stated None - Discharge Diagnosis(es) (1) 31 to 32 weeks gestation of Current Visit: Yes Status: Acute (2) Dichorionic diamniotic twin gestation Current Visit: No Status: Acute (3) contractions Current Visit: No Status: Acute Hospital Course: 24-year-old 3 para 1-0-1-1 at 31-2/7 weeks that presented yesterday with complaints of regular painful contractions. Patient has known Di Di twin gestation and has been struggling with contractions. Patient has been seen at [facility] in [place] multiple times for contractions and discharged home. Patient cervix has been stable at 1 to 2 cm thick and high. Patient has been taking Procardia 10 mg 3 times daily for toco lysis. Patient stated she was noting contractions to be increasing in strength and frequency. Patient was noted to be 1 to 2 cm upon evaluation in OB triage. Patient was very uncomfortable and tearful. Patient was admitted to labor and delivery overnight with IV hydration and terbutaline protocol. Terbutaline did slow the contractions down, patient did well through the night. Patient did receive Ambien x 1 for sleep. Patient states this morning she is feeling much improved. Contractions have eased significantly. She notes good movement x 2. She denies vaginal bleeding or loss of fluid. She is requesting discharge home. Discussed modified bedrest with hydration in addition to Ambien as needed for sleep. Patient states she feels comfortable with the plan. Patient Condition at Discharge: Good Plan - Discharge Summary New Discharge Prescriptions: No Action Aspirin 81 mg PO DAILY Sertraline [Zoloft] 100 mg PO DAILY NIFEdipine [Procardia] 10 mg PO TID Vit No.179/Iron/Folic [ Tablet] 1 tablet PO DAILY Sennosides/Docusate Sodium [Senna Plus 8.6-50 mg Tablet] 1 tab PO DAILY Discharge Medication List Aspirin 81 mg PO DAILY 10/15/22 [History] Vit No.179/Iron/Folic [ Tablet] 1 tablet PO DAILY 10/15/22 [History] Sennosides/Docusate Sodium [Senna Plus 8.6-50 mg Tablet] 1 tab PO DAILY 09/02/24 [History] Sertraline [Zoloft] 100 mg PO DAILY 09/02/24 [History] NIFEdipine [Procardia] 10 mg PO TID 10/31/24 [History] Follow up Appointment(s)/Referral(s): Destini Nunez DO [Doctor of Osteopathic Medicine] - 1 Week Activity/Diet/Wound Care/Special Instructions: Modified bedrest at home, patient does well with minimal activity through the day. labor precautions are discussed. Multiple questions are answered. Patient is to follow-up in 1 week Discharge Disposition: HOME SELF-CARE
== END 2024-11-01 11:55 | disposition home or self-care (01) ==
LOC: FBPOP 14:24 → 4FBP 15:52
PROVIDERS: ADMIT Obstetrics & Gynecology Obstetrics; ATTEND Obstetrics & Gynecology Obstetrics
DX: O60.14X0 Preterm labor third trimester with preterm delivery third trimester, not applicable or unspecified (principal); O30.043 Twin pregnancy, dichorionic/diamniotic, third trimester; Z3A.31 31 weeks gestation of pregnancy; Z79.82 Long term (current) use of aspirin; Z79.899 Other long term (current) drug therapy; Z91.040 Latex allergy status; Z91.048 Other nonmedicinal substance allergy status; Z87.59 Personal history of other complications of pregnancy, childbirth and the puerperium
CPT/HCPCS: 59025; 99213; 96361 ×2; 96372; 96374; 96375; 81003; 76815; G0378 ×2; J1200; J3105; S0197; J0131; 96365